=== PATIENT | male | born 1980 | race Caucasian/White ===

== ENCOUNTER 2020-11-06 20:52 | Emergency (ER) | payer BC, OTHER ==
[2020-11-06] MEDS ORDERED: Ketorolac 30 MG/ML SDV IVPUSH ONE (22:05)
[2020-11-06] MEDS ORDERED: Methocarbamol 500 MG Tab PO ONE (22:05)
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
== END 2020-11-06 23:13 | disposition home or self-care (01) ==
LOC: JP.ED 20:52
DX: S39.012A Strain of muscle, fascia and tendon of lower back, initial encounter (principal); S29.012A Strain of muscle and tendon of back wall of thorax, initial encounter; Z88.1 Allergy status to other antibiotic agents; Z88.0 Allergy status to penicillin; V89.2XXA Person injured in unspecified motor-vehicle accident, traffic, initial encounter
CPT/HCPCS: 72125; 72128; 72131; 96374; 99284; A9270; J1885